=== PATIENT | female | born 1955 | race Caucasian/White ===

== ENCOUNTER 2021-10-23 10:59 | Inpatient (IN) ==
[~2021-10-23 10:59] MED LIST: predniSONE 20 MG TABLET PO SCH
[2021-10-23] MEDS ORDERED: HYDROmorphone 2 MG/1 ML VIAL IV STA ×2 (11:28→13:19)
[2021-10-23] MEDS ORDERED: ONDANSETRON 4 MG/2 ML VIAL IV ONE ×2 (11:28→13:19)
[2021-10-23 12:06] LABS: Basophils % 0.3 % (0.0-0.8); Eosinophils # 0.2 10*3/uL (0.0-0.87); Eosinophils % 1.9 % (0.00-10.9); Hematocrit 38.9 VOL% (35.7-47.0); Hemoglobin 12.9 GM/DL (12.0-16.0); Immature Granulocytes % 0.5 %; Immature Granulocytes Absolute 0.05 #; Lymphocytes # 3.5 10*3/uL (1.4-4.0); Lymphocytes % 32.5 % (21.3-54.2); Mean Corpuscular HGB Conc 33.2 GM/DL (32-36); Mean Corpuscular Volume 91.5 FL (87-102); Mean Platelet Volume 9.5 FL (9.6-12.0); Monocytes % 6.1 % (1.7-12.7); Neutrophils % 58.7 % (38.7-73.9); Platelet Count 404 T/CUMM (130-400); Red Blood Count 4.25 MC/CUMM (3.8-5.5); Red Cell Distribution Width 13.2 % (9.3-17.3); White Blood Count 10.8 T/CUMM (4-12)
[2021-10-23 12:28] LABS: Alanine Aminotransferase 20 U/L (13-56); Albumin 3.6 G/DL (3.4-5.0); Alkaline Phosphatase 95 U/L (45-117); Aspartate Amino Transferase 11 U/L (0-37); Blood Urea Nitrogen 21 MG/DL (7-18); Calcium 8.8 MG/DL (8.5-10.1); Carbon Dioxide 25 MMOL/L (21-32); Estimated Glom Filtration Rate 78 ML/MIN; Glucose 141 MG/DL (74-106); Osmolality,Calculated 270.4 MOS/KG (273-304); Potassium 4.5 MMOL/L (3.5-5.1); Sodium 133 MMOL/L (136-145); Total Protein 7.5 G/DL (6.4-8.2)
[2021-10-23 13:17] LABS: Sedimentation Rate-Westergren 27 MM/HR (0-30)
[2021-10-23] MEDS ORDERED: HYDROmorphone 1 MG/1 ML SYRINGE IV STA (15:04)
[2021-10-23] MEDS ORDERED: GLUCAGON 1 MG VIAL IM PRN ×2 (15:41)
[2021-10-23] MEDS ORDERED: DEXTROSE 50% 25 GM/50 ML VIAL IV PRN (15:41)
[2021-10-23] MEDS ORDERED: predniSONE 20 MG TABLET PO ONE (16:00)
[2021-10-23] MEDS ORDERED: DEXTROSE 10% 250 ML BAG IV PRN (16:07)
[2021-10-23] MEDS: ENOXAPARIN 40 MG/0.4 ML SYRINGE SUBCUT SCH (16:22)
[2021-10-23] MEDS: INSULIN LISPRO 100 UNIT/ML SUBCUT SCH ×2 (16:23→21:37)
[2021-10-23] MEDS ORDERED: hydrALAZINE 20 MG/1 ML VIAL IV PRN (16:45)
[2021-10-23] MEDS: LOSARTAN 50 MG TABLET PO SCH (17:02)
[2021-10-23] MEDS: carBAMazepine 200 MG TABLET PO SCH (17:50)
[2021-10-23] MEDS: ONDANSETRON 4 MG/2 ML VIAL IV PRN ×2 (18:22→23:00)
[2021-10-23] MEDS ORDERED: ATORVASTATIN 10 MG TABLET PO SCH (21:00)
[2021-10-23] MEDS: carvediloL 12.5 MG TABLET PO SCH (21:37)
[2021-10-23] MEDS: traMADol 50 MG TABLET PO PRN (22:59)
[2021-10-24] MEDS: HYDROmorphone 1 MG/1 ML SYRINGE IV PRN (01:16)
[2021-10-24] MEDS: ONDANSETRON 4 MG/2 ML VIAL IV PRN (02:43)
[2021-10-24] MEDS: carBAMazepine 200 MG TABLET PO SCH ×2 (04:25→18:38)
[2021-10-24 05:17] LABS: Basophils % 0.2 % (0.0-0.8); Hematocrit 40.5 VOL% (35.7-47.0); Hemoglobin 13.1 GM/DL (12.0-16.0); Immature Granulocytes % 0.8 %; Lymphocytes % 15.6 % (21.3-54.2); Mean Corpuscular HGB Conc 32.3 GM/DL (32-36); Mean Corpuscular Volume 91.2 FL (87-102); Monocytes % 1.8 % (1.7-12.7); Neutrophils % 81.6 % (38.7-73.9); Platelet Count 424 T/CUMM (130-400); Red Blood Count 4.44 MC/CUMM (3.8-5.5); Red Cell Distribution Width 13.2 % (9.3-17.3); White Blood Count 12.5 T/CUMM (4-12)
[2021-10-24 05:31] LABS: Risk Ratio 2.43; VLDL Cholesterol 23.6 MG/DL
[2021-10-24 05:39] LABS: Alanine Aminotransferase 20 U/L (13-56); Albumin 3.6 G/DL (3.4-5.0); Alkaline Phosphatase 101 U/L (45-117); Aspartate Amino Transferase 15 U/L (0-37); Bilirubin,Total < 0.39 MG/DL (0.20-1.00); Blood Urea Nitrogen 24 MG/DL (7-18); Carbon Dioxide 26 MMOL/L (21-32); Estimated Glom Filtration Rate 79 ML/MIN; Glucose 200 MG/DL (74-106); Osmolality,Calculated 275.4 MOS/KG (273-304); Potassium 4.9 MMOL/L (3.5-5.1); Sodium 133 MMOL/L (136-145); Total Protein 7.9 G/DL (6.4-8.2)
[2021-10-24 06:58] LABS: Sedimentation Rate-Westergren 20 MM/HR (0-30)
[2021-10-24] MEDS: INSULIN LISPRO 100 UNIT/ML SUBCUT SCH ×4 (08:00→20:36)
[2021-10-24] MEDS: LOSARTAN 50 MG TABLET PO SCH (08:44)
[2021-10-24] MEDS: DULoxetine 30 MG CAPSULE PO SCH (08:45)
[2021-10-24] MEDS: carvediloL 12.5 MG TABLET PO SCH ×2 (08:45→20:31)
[2021-10-24] MEDS: PANTOPRAZOLE 40 MG TABLET PO SCH (08:45)
[2021-10-24] MEDS ORDERED: ALPRAZolam 0.5 MG TABLET PO PRN (09:27)
[2021-10-24] MEDS: ENOXAPARIN 40 MG/0.4 ML SYRINGE SUBCUT SCH (20:31)
[2021-10-24] MEDS ORDERED: ATORVASTATIN 40 MG TABLET PO SCH (21:00)
[2021-10-24] MEDS: traMADol 50 MG TABLET PO PRN (23:23)
[2021-10-25] MEDS: HYDROmorphone 1 MG/1 ML SYRINGE IV PRN (01:00)
[2021-10-25] MEDS ORDERED: HYDROmorphone 1 MG/1 ML SYRINGE IV ONE (04:43)
[2021-10-25] MEDS ORDERED: DEXAMETHASONE 4 MG/1 ML VIAL IV ONE (04:43)
[2021-10-25 06:08] LABS: Basophils # 0.1 10*3/uL (0.0-0.2); Basophils % 0.5 % (0.0-0.8); Eosinophils # 0.1 10*3/uL (0.0-0.87); Eosinophils % 0.7 % (0.00-10.9); Hematocrit 40.8 VOL% (35.7-47.0); Immature Granulocytes % 0.4 %; Immature Granulocytes Absolute 0.04 #; Lymphocytes # 3.1 10*3/uL (1.4-4.0); Lymphocytes % 28.8 % (21.3-54.2); Mean Corpuscular HGB Conc 31.9 GM/DL (32-36); Mean Corpuscular Volume 93.8 FL (87-102); Mean Platelet Volume 10.7 FL (9.6-12.0); Monocytes % 6.3 % (1.7-12.7); Neutrophils % 63.3 % (38.7-73.9); Platelet Count 413 T/CUMM (130-400); Red Blood Count 4.35 MC/CUMM (3.8-5.5); Red Cell Distribution Width 13.2 % (9.3-17.3); White Blood Count 10.6 T/CUMM (4-12)
[2021-10-25 06:21] LABS: Calcium 8.8 MG/DL (8.5-10.1); Osmolality,Calculated 277.2 MOS/KG (273-304); Potassium 4.2 MMOL/L (3.5-5.1)
[2021-10-25] MEDS: ONDANSETRON 4 MG/2 ML VIAL IV PRN (06:44)
[2021-10-25 07:44] LABS: Sedimentation Rate-Westergren 20 MM/HR (0-30)
[2021-10-25] MEDS: LOSARTAN 50 MG TABLET PO SCH (08:41)
[2021-10-25] MEDS: DULoxetine 30 MG CAPSULE PO SCH (08:41)
[2021-10-25] MEDS: carvediloL 12.5 MG TABLET PO SCH (08:42)
[2021-10-25] MEDS: PANTOPRAZOLE 40 MG TABLET PO SCH (08:42)
[2021-10-25] MEDS ORDERED: LORazepam 2 MG/1 ML VIAL IV ONE ×2 (09:00→11:11)
[2021-10-25] MEDS ORDERED: ASPIRIN EC 81 MG TABLET PO SCH (09:00)
[2021-10-25 11:54] VITALS: BP 153/74
[2021-10-25] MEDS: INSULIN LISPRO 100 UNIT/ML SUBCUT SCH ×2 (17:46→17:47)
[2021-10-26 14:05] LABS: Myeloperoxidase Antibody < 0.2 U
== END 2021-10-25 17:45 | disposition home or self-care (01) | DRG 74 ==
LOC: N.ED 10:59 → SUATTDRO 15:41 → N.EDINP 15:41 → N.5E 17:00
PROVIDERS: ADMIT Internal Medicine; ATTEND Internal Medicine